=== PATIENT | female | born 1995 | race Caucasian/White ===

== ENCOUNTER 2018-09-23 12:19 | Outpatient (CLI) | payer OTHER ==
[2018-09-23 13:18] LABS: BASOPHILS % (AUTO) 0.4 % (0-1); EOSINOPHILS # (AUTO) 0.2 X10'3 (0-0.9); EOSINOPHILS % (AUTO) 2.3 % (0-6); HEMATOCRIT 42.6 % (35.0-45.0); LYMPHOCYTES # (AUTO) 2.1 X10'3 (1.1-4.8); LYMPHOCYTES % (AUTO) 26.9 % (21-51); MEAN CORPUSCULAR HEMOGLOBIN 30.5 PG (27.0-31.0); MEAN CORPUSCULAR HGB CONC 32.9 % (33.0-36.5); MEAN CORPUSCULAR VOLUME 92.7 FL (78-98); MEAN PLATELET VOLUME 9.4 FL (7.4-10.4); MONOCYTES # (AUTO) 0.5 X10'3 (0-0.9); MONOCYTES % (AUTO) 6.7 % (2-12); NEUTROPHILS # (AUTO) 4.9 X10'3 (1.8-7.7); NEUTROPHILS % (AUTO) 63.7 % (42-75); PLATELET COUNT 258 X10'3 (140-440); RED CELL DISTRIBUTION WIDTH 12.5 % (11.5-14.5); WHITE BLOOD COUNT 7.7 X10'3 (4.5-11.0)
[2018-09-23 13:29] LABS: CLARITY,URINE CLEAR (Clear); COLOR,URINE YELLOW (Yellow); GLUCOSE, URINE NEGATIVE (Neg); KETONES,URINE NEGATIVE (Neg); LEUKOCYTE ESTERASE ,URINE NEGATIVE (Neg); NITRITES, URINE NEGATIVE (Neg); OCCULT BLOOD,URINE NEGATIVE (Neg); PROTEIN,URINE NEGATIVE (Neg); UROBILINOGEN,URINE 0.2 E.U/dL (0.2-1.0)
[2018-09-23 13:31] LABS: UA COLLECTION TYPE CLN CATCH MIDSTREAM
[2018-09-23 13:55] LABS: ALANINE AMINOTRANSFERASE 22 U/L (12-78); ALBUMIN/GLOBULIN RATIO 1.1 (1.1-1.5); ALKALINE PHOSPHATASE 69 IU/L (46-116); ANION GAP 8 (8-16); ASPARTATE AMINO TRANSFERASE 15 U/L (10-37); BILIRUBIN,TOTAL 0.6 MG/DL (0.1-1.0); BLOOD UREA NITROGEN 10 MG/DL (7-18); BUN/CREATININE RATIO 11.8 (6.6-38.0); CALCIUM 8.9 MG/DL (8.5-10.1); CHLORIDE 103 MMOL/L (99-107); CHOL/HDL RATIO 1.9 (0.00-4.99); CHOLESTEROL 147 MG/DL (0-200); CREATININE 0.85 MG/DL (0.40-0.90); GLUCOSE 91 MG/DL (70-104); HDL CHOLESTEROL 76 MG/DL (35-60); LDL CHOLESTEROL 67 MG/DL (50-100); POTASSIUM 3.7 MMOL/L (3.5-5.1); SODIUM 141 MMOL/L (135-145); TOTAL CARBON DIOXIDE 29.8 MMOL/L (24-32); TOTAL PROTEIN 7.6 G/DL (6.4-8.2); TRIGLYCERIDES 31 MG/DL (20-135); eGFR 84 ML/MIN
[2018-09-23 14:05] LABS: FERRITIN 31 NG/ML (8-252)
[2018-09-25 05:17] LABS: TRIIODOTHYRONINE (T3) 93 ng/dL (71-180); VITAMIN D, 25-HYDROXY 38.6 ng/mL (30.0-100.0)
[2018-09-25 07:12] LABS: ESTRADIOL 110.5 pg/mL (.); PROGESTERONE <0.1 ng/mL (.); THYROID PEROXIDASE AB 10 IU/mL (0-34)
[2018-09-25 08:19] LABS: IMMUNOGLOBULIN A, QN, SERUM 277 mg/dL (87-352); IMMUNOGLOBULIN G, QN, SERUM 1108 mg/dL (700-1600)
[2018-09-25 13:15] LABS: ANTITHYROGLOBULIN AB <1.0 IU/mL (0.0-0.9)
[2018-09-26 05:15] LABS: ANTINUCLEAR ANTIBODIES Negative (Negative)
== END 2018-09-23 23:59 | disposition home or self-care (01) ==
LOC: LAB 12:19
PROVIDERS: ATTEND Chiropractor
DX: K90.89 Other intestinal malabsorption (principal); E34.9 Endocrine disorder, unspecified; R53.82 Chronic fatigue, unspecified; K52.89 Other specified noninfective gastroenteritis and colitis; F41.8 Other specified anxiety disorders
CPT/HCPCS: 36415; 80053; 80061; 81003; 82306; 82607; 82652; 82670; 82728; 82784; 84144; 84432; 84439; 84443; 84480; 85025; 86038; 86376; 86800